=== PATIENT | male | born 1995 | race Caucasian/White ===

== ENCOUNTER 2020-05-18 16:56 | Emergency (ER) | payer OTHER ==
[~2020-05-18] VITALS: Ht 177.8 cm; Wt 72.6 kg
[~2020-05-18 16:56] MED LIST: FLEXERIL PO; IBUPROFEN 600600 M1 PO; NAPROSYN500 MG PO
[2020-05-18 18:30] VITALS: BP 137/85
== END 2020-05-18 18:30 | disposition home or self-care (01) ==
LOC: ER 16:56
DX: R05 Cough (principal); R06.02 Shortness of breath; R51.9 Headache, unspecified; R11.10 Vomiting, unspecified; R43.8 Other disturbances of smell and taste; Z20.822 Contact with and (suspected) exposure to COVID-19